=== PATIENT | female | born 1950 | race Caucasian/White ===

== ENCOUNTER 2018-08-25 11:04 | Emergency (ER) | payer MEDICARE, MEDICAID ==
[~2018-08-25] VITALS: Ht 165.1 cm; Wt 66.2 kg
[2018-08-25 11:09] VITALS: BP 109/71
[2018-08-25 11:43] LABS: RAPID INFLUENZA A Negative (Negative); RAPID INFLUENZA B Negative (Negative)
[2018-08-25] MEDS ORDERED: ALBUTEROL SULFATE 2.5 MG/3 ML ONE (12:00)
[2018-08-25] MEDS ORDERED: ALBUTEROL SULFATE 2.5 MG/3 ML NPPB ONE (12:00)
== END 2018-08-25 12:29 | disposition home or self-care (01) ==
LOC: ED 12:23
DX: J44.1 Chronic obstructive pulmonary disease with (acute) exacerbation (principal)
CPT/HCPCS: 71046; 87400; 94640; 99284; J7613

== ENCOUNTER 2020-01-11 19:38 | Emergency (ER) | payer MEDICARE, MEDICAID ==
[~2020-01-11] VITALS: Ht 162.6 cm; Wt 64.4 kg
[~2020-01-11 19:38] MED LIST: ALEN70TA6 PO; CALCIUM PO; CETI10CA PO; DICY10CA3 PO; ESTR0.6246 PO; FLUC200T PO; FOLI-17 PO; FURO-93 PO; LEVO150T PO; LEVO175T2 PO; METHOTREXATE INJ; TRAM50TA2 PO; [UNRECOGNIZED DRUG - OTHER] INJ
[2020-01-11] MEDS ORDERED: ONDANSETRON 2MG/ML, 2ML IVPush ONE (20:00)
[2020-01-11] MEDS ORDERED: SODIUM CHLORIDE 0.9% 1,000ML IVBOLUS ONE (20:00)
--- NOTE | 2020-01-11 20:01 | NUR ---
PT TO ED WITH N/V AND WATERY STOOL IN ILEOSTOMY POUC. REPORTS N/V STARTED AT APPX 1600 TODAY WITH CONSTANT VOMITING. PT REPORTS ABX USE APPX X1 MONTH AGO. BILATERAL LEGS SWOLLEN WITH EDEMA NOTED +2 PITTING. PT REPORTS LASIX PRESCRIPTION, BUT HAS NOT TAKEN IT IN X3 DAYS. PT DENIES ANY OTHER MEDICAL C/O AT THIS TIME. PT CONNECTED TO MONITORING, ERP AT BS TO EVAL PT. CALL LIGHT WITHIN REACH, ALL SAFETY MEASURES IN PLACE.
[2020-01-11] MEDS ORDERED: ONDANSETRON 2MG/ML, 2ML ONE (20:32)
[2020-01-11 20:44] LABS: MEAN CORPUSCULAR HEMOGLOBIN 29.5 pg (27.0-34.8); MEAN CORPUSCULAR HGB CONC 32.9 g/dL (32.4-35.8); MEAN CORPUSCULAR VOLUME 89.7 fL (80-100); MEAN PLATELET VOLUME 9.6 fL (7.4-10.4); PLATELET COUNT 202 x10^3/uL (130-400); RED BLOOD COUNT 5.21 x10^6/uL (3.82-5.3); RED CELL DISTRIBUTION WIDTH 13.3 % (9.6-15.2)
--- NOTE | 2020-01-11 20:46 | NUR ---
UA/LABS AND STOOL SAMPLE SENT TO LAB. MONITORING IN PLACE, CALL LIGHT WITHIN REACH. ALL SAFETY MEASURES IN PLACE.
[2020-01-11 20:50] LABS: ALANINE AMINOTRANSFERASE 17 U/L (12-78); ALBUMIN 4.2 g/dL (3.4-5.0); ANION GAP 6 mmol/L (5-15); CALCIUM 8.9 mg/dL (8.5-10.1); CHLORIDE 108 mmol/L (98-107)
[2020-01-11 20:53] LABS: ALKALINE PHOSPHATASE 63 U/L (45-117); BILIRUBIN,TOTAL 0.6 mg/dL (0.2-1.0); CREATININE 0.93 mg/dL (0.55-1.02); TOTAL PROTEIN 7.3 g/dL (6.4-8.2)
[2020-01-11 21:01] LABS: BASOPHILS % (AUTO) 0 % (0-1); EOSINOPHILS # (AUTO) 0.03 x10^3/uL (0-0.4); EOSINOPHILS % (AUTO) 0 % (1-7); LYMPHOCYTES # (AUTO) 0.17 x10^3/uL (1-3.4); LYMPHOCYTES % (AUTO) 1 % (22-44); MD SCAN; MONOCYTES # (AUTO) 0.53 x10^3/uL (0.2-0.8); MONOCYTES % (AUTO) 3 % (2-9); NEUTROPHILS # (AUTO) 16.76 x10^3/uL (1.8-6.8); NEUTROPHILS % (AUTO) 96 % (42-75)
[2020-01-11 21:17] LABS: MICROSCOPIC INDICATED
[2020-01-11 21:26] LABS: CLOSTRIDIUM DIFFICILE ANTIGEN NEGATIVE; CLOSTRIDIUM DIFFICILE TOXIN NEGATIVE (Negative)
--- NOTE | 2020-01-11 21:50 | NUR ---
PT RESITNG ON GUYUNG, UPDATED ON POC, CALL LIGHT WITHIN REACH, MONITORING IN PLACE.
[2020-01-11] MEDS ORDERED: CEFTRIAXONE PMX 1GM/50ML 50 ML IVPB ONE (22:30)
[2020-01-11] MEDS ORDERED: CEFTRIAXONE PMX 1GM/50ML 50 ML ONE (22:32)
--- NOTE | 2020-01-11 22:35 | NUR ---
PT AT CT AT THIS TIME.
--- NOTE | 2020-01-11 22:52 | NUR ---
PT BACK FROM CT. MEDICATED PER JUL. MONITORING REAPPLIED, CALL LIGHT WITHIN REACH, ROOM DIMMED FOR PT COMFORT. PT UPDATED ON POC.
[2020-01-11 23:53] VITALS: BP 99/57
== END 2020-01-12 00:05 | disposition home or self-care (01) ==
LOC: ED 20:08
DX: K52.9 Noninfective gastroenteritis and colitis, unspecified (principal); N10 Acute pyelonephritis; N39.0 Urinary tract infection, site not specified; J44.9 Chronic obstructive pulmonary disease, unspecified
CPT/HCPCS: 36415; 74176; 80053; 81001; 85025; 87086; 87186; 87324; 89055; 96361; 96365; 96375; 99285; J0696; J2405; J7030

== ENCOUNTER → 2020-03-10 | Outpatient (CLI) | payer MEDICARE, MEDICAID | END | disposition home or self-care (01) | LOC: CFH 08:21 | PROVIDERS: ATTEND Internal Medicine | DX: Z12.31 Encounter for screening mammogram for malignant neoplasm of breast (principal); M51.35 Other intervertebral disc degeneration, thoracolumbar region; M48.05 Spinal stenosis, thoracolumbar region; M41.85 Other forms of scoliosis, thoracolumbar region; M25.78 Osteophyte, vertebrae; Z78.0 Asymptomatic menopausal state; M85.88 Other specified disorders of bone density and structure, other site | CPT/HCPCS: 72110; 77063; 77067; 77080 ==